=== PATIENT | male | born 1955 | race Hispanic/Latino ===

== ENCOUNTER 2016-06-22 06:46 | Day surgery (SDC) | payer MEDICARE ==
[2016-06-18 11:04] VITALS: BMI 32.3
[2016-06-22 07:15] VITALS: RESP 18
[2016-06-22] MEDS ORDERED: Lactated Ringer's 1,000 ML IV ONE ×2 (07:40→11:30)
[2016-06-22] MEDS ORDERED: Bupivacaine 0.5% Inj(30mL) ONE (09:26)
[2016-06-22] MEDS ORDERED: EPINEPHrine 1 mg/ml (1:1000) Inj ONE (09:26)
[2016-06-22] MEDS ORDERED: Midazolam 2 MG/2 ML VIAL ONE (09:41)
[2016-06-22] MEDS ORDERED: Propofol 10 mg/ml Inj (20 ML) ONE (09:41)
[2016-06-22] MEDS ORDERED: Sevoflurane - Inhalation Anesthetic Liq (250 ml) ONE (09:46)
[2016-06-22] MEDS ORDERED: ePHEDrine 50 mg/ml Inj ONE (10:33)
[2016-06-22] MEDS ORDERED: Lidocaine 1% Inj (20ml) IJ ONE ×2 (11:02→11:11)
[2016-06-22] MEDS ORDERED: Morphine 1 mg/ml preservative-free Inj(Duramorph) ONE (11:38)
[2016-06-22] MEDS ORDERED: methylPREDNISolone Depo 80 mg/ml Inj ONE (11:39)
[2016-06-22] MEDS ORDERED: Morphine 1 mg/ml preservative-free Inj(Duramorph) IV ONE (12:10)
[2016-06-22] MEDS ORDERED: methylPREDNISolone Depo 80 mg/ml Inj IM ONE (12:10)
[2016-06-22] MEDS ORDERED: Bupivacaine 0.5% 50 ML IJ ONE (12:10)
[2016-06-22] MEDS: HYDROmorphone 0.5 mg/0.5 ml ISec IVP PRN ×2 (12:55→13:15)
--- NOTE | 2016-06-22 13:49 | PCM.SURG1 ---
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 synovitis L ankle joint. synovitis subtalar joint. loose body L tibio talar arthritis Post-Operative Diagnosis: as above Operation Performed: surgical arthroscopy L ankle/synovectomy. surgical arthroscopy l subtalar joint/partial synovectomy. surgical arthroscopy removal loose body L ankle. intraarticular injection. applx posterrior splint Specimen/Specimens Removed: synovium. loose body. L anly/ L subtaal joint Estimated Blood Loss: EBL {In ML}: 15 Blood Products Given: N/A Drains Used: No Drains Post-Op Condition: Good Date of Surgery/Procedure: 06/22/16 Time of Surgery/Procedure: 11:10 (time in room/anaesthesia induction time- )
[2016-06-22] MEDS ORDERED: Oxycodone/Acetaminophen 5/325 mg Tab PO STA (15:28)
[2016-06-22] MEDS ORDERED: Oxycodone/Acetaminophen 5/325 mg Tab PO ONE (15:40)
[2016-06-22 16:41] VITALS: BP 115/79; PULSE 83; TEMP 97.9; O2SAT 100
--- NOTE | 2016-06-22 19:46 | OP ---
PROCEDURE DATE: 06/22/2016 PREOPERATIVE DIAGNOSES: 1. 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 2. Inflammatory psoriatic arthritis, left subtalar joint. POSTOPERATIVE DIAGNOSES: 1. Psoriatic Inflammatory arthritis of the left ankle. 2. 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 PROCEDURES: 1. Surgical arthroscopy in left ankle, partial synovectomy. 2. Surgical arthroscopy, removal of loose body in left ankle. 3. Surgical arthroscopy, subtalar joint. 4. Surgical arthroscopy and synovectomy and debridement of the subtalar joint. 5. Intra-articular injection. 6. Application of posterior splint. SURGEON: Aydin Meadows MD. RN OFFICE: [facility] Hutson, Certified Registered Nursing House Principal. SECOND MEASURER MACHINE: Dr. Toni Ramirez, Podiatry Resident. ANESTHESIA: General endotracheal anesthesia. COMPLICATIONS: None. DRAINS: None. 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 The patient has diagnosed psoriatic arthritis and diagnosed arthritis of subtalar joint and left ankle. The patient was refractory to conservativ e approach consisting of anti-inflammatory medication, intra-articular injections, therapy. Pros, co ns, risks and benefits of surgical arthroscopy were discussed. The possibility of mechanical failure , infection, thromboembolic disease, secondary or tertiary surgery is discussed. The patient can no longer stand the discomfort. OPERATIVE PROCEDURE: After having obtained informed consent, after thoroughly discussing the pros, c ons, risks and benefits of surgical approach; the concept that eventual total ankle arthroplasty or p an talar arthrodesis may be indicated is discussed. The patient feels he is too young for the more d efinitive procedures and I agree. Pros, cons, risks and benefits of surgical arthroscopy were discus sed with the patient and his significant other, Inga. The patient can no longer stand the discom fort and wished the surgery to be accomplished. OPERATIVE PROCEDURE: After having obtained informed consent in the above fashion, after having ident ified side, site and procedure and a critical pause/timeout, after the satisfactory induction of the anesthetic, the patient identified as correct, in the supine position with all bony prominences well padded, the left lower extremity is prepped and free draped in the usual fashion for lower extremity surgery. The tourniquet had been applied, but is not yet inflated. After having identified side, si te and procedure and a critical pause/timeout, after the satisfactory induction of the anesthetic, af ter having obtained informed consent, the joint is insufflated with 10 mL of 1% lidocaine without epi nephrine. Using a #11 blade followed by spreading, followed by introduction of blunt trocar, the art hroscope was introduced. Examination of the joint commences. There is found to be evidence of loose body in a florid synovitis. Triangulation was accomplished anteromedially using a #18 gauge spinal needle, followed by #11 blade, followed by spreading. With the arthroscope anterolaterally and with the tourniquet which had been applied is inflated to 350 mmHg, using a #11 blade the joint is entered anteromedially. Please refer to the video photographs. With the arthroscope anterolaterally, a car eful synovectomy, but extensive synovectomy, of the ankle joint is accomplished with the arthroscopic shaver and the ViewRay Serfas wand. Hemostasis controlled. The wound is thoroughly irrigated. Hem ostasis controlled with the Serfas wand. A careful synovectomy is accomplished. At this point in ti me, a loose body was located. With the arthroscope anterolaterally, using a combination of the grasp er, loose body is excised. Careful partial tricompartmental synovectomy is accomplished. There is f ound to be evidence of extensive chondral damage at the tibiotalar joint with evidence of osteophytes on the tibial plafond. Loose body having been removed, thorough debridement of the ankle joint havi ng been accomplished, chondroplasty is accomplished as well. With the arthroscope anterolaterally fi nal synovectomy is accomplished. Bleeding points controlled with a wand. At this point in time, the arthroscope was removed. A spinal needle was placed in the subtalar joint and there is found to be marked synovitis in the subtalar joint. Using an #18 gauge spinal needle, followed by #11 blade, fol lowed by spreading, the arthroscope was introduced. Two further portals were accomplished in the sub talar joint in the same fashion. There was found to be a marked synovitis in the area of the subtala r joint. With the arthroscope in the midlateral portal, a careful synovectomy is accomplished taking great care not to compromise the interosseous ligament. With the arthroscope in the anterolateral p ortal using a combination of the shaver and the wand a synovectomy is accomplished. Bleeding points are controlled with the Arthrocare wand. With the arthroscope mid laterally, a careful synovectomy o f the subtalar joint is accomplished. Chondroplasty is accomplished as well. The wound is thoroughl y irrigated. Portals were closed with interrupted Vicryl and nylon. Intra-articular injection of huang th the ankle and the subtalar joint is accomplished with Marcaine and Depo-Medrol, and Duramorph. Ro lew Shanks compression dressing and posterior splint is applied. Aydin Meadows MD cc: [id number] TT: 06/22/2016 19:46:23 jn
== END 2016-06-22 16:53 | disposition home or self-care (01) ==
LOC: H.OPSURG 06:46
PROVIDERS: ATTEND Orthopaedic Surgery
DX: M25.572 Pain in left ankle and joints of left foot (principal); E78.5 Hyperlipidemia, unspecified; I10 Essential (primary) hypertension; K21.9 Gastro-esophageal reflux disease without esophagitis
CPT/HCPCS: 20605; 29894; 29895; 97116; 97161; G8978; G8979; G8980; J1040; J1170; J2001; J2250; J2270; J2405; J2704; J3010; J7030; J7120